=== PATIENT | male | born 1975 | race Caucasian/White ===

== ENCOUNTER 2019-11-21 16:23 | Emergency (ER) | payer SELFPAY ==
[~2019-11-21] VITALS: Ht 190.5 cm; Wt 108.9 kg
[2019-11-21 16:27] VITALS: BP 134/87
--- NOTE | 2019-11-21 16:30 | NUR ---
dr. joanne ge pt
--- NOTE | 2019-11-21 16:30 | NUR ---
PRE-BOOK ---DENIES ANY MEDICAL COMPLAINTS AT THIS TIME---FULL CLEAR SPEEECH
[2019-11-21 16:51] VITALS: BP 134/87
--- NOTE | 2019-11-21 16:51 | NUR ---
Patient discharged with v/s stable. Written and verbal after care instructions given and explained. Patient verbalized understanding. [place] [facility] [place]. All questions addressed prior to discharge. Advised to follow up with PMD.
== END 2019-11-21 16:51 ==
LOC: MED 16:23
DX: H55.09 Other forms of nystagmus (principal); Z02.89 Encounter for other administrative examinations
CPT/HCPCS: 99281; 99283